=== PATIENT | male | born 1980 | race Two or more races ===

== ENCOUNTER → 2025-05-31 | Outpatient (CLI) | payer MEDICAID, SELFPAY ==
--- NOTE | 2025-05-31 10:42 | XR_ITS ---
Examination: Abdomen AP single view Technique: AP portable supine abdomen, single view Exam date and time: May 31, 2025 1054 hours INDICATIONS: Abdominal pain one week, history lithotripsy one year ago. FINDINGS: Ventricular peritoneal shunt tube No renal or ureteral calculi noted Nonobstructive bowel gas pattern IMPRESSION: No renal or ureteral calculi noted
== END | disposition home or self-care (01) ==
PROVIDERS: PCP Family Medicine; Referring Provider Surgery; Visit Provider Surgery
DX: R10.9 Unspecified abdominal pain (principal)
CPT/HCPCS: 74018